=== PATIENT | female | born 1970 | race Caucasian/White ===

== ENCOUNTER → 2020-11-16 | Outpatient (REF) | payer OTHER | LOC: M LAB REF 17:06 | PROVIDERS: ATTEND Physician Assistant | DX: R21 Rash and other nonspecific skin eruption (principal) ==

== ENCOUNTER → 2021-09-26 | Outpatient (CLI) | payer OTHER ==
[2021-09-26 17:37] LABS: FREE THYROXINE INDEX 2.6 % (1.3-4.8); THYROID STIMULATING HORMONE 1.1 uIU/ML (0.358-3.740); THYROXINE (T4) 7.5 UG/DL (4.5-12.0); TOTAL T3 93.8 NG/DL (60.0-181.0)
== END ==
LOC: M LAB 16:16
PROVIDERS: ATTEND Ophthalmology
DX: H05.20 Unspecified exophthalmos (principal)